=== PATIENT | female | born 1955 | race Caucasian/White ===

== ENCOUNTER → 2016-07-18 | Outpatient (CLI) | payer BC ==
--- NOTE | 2016-07-18 13:18 | MAMMOGRAPHY REPORT ---
BILATERAL DIGITAL SCREENING MAMMOGRAM TOMOSYNTHESIS WITH CAD: 07/18/2016 CLINICAL HISTORY: Routine screening. Patient has no complaints. TECHNIQUE: Breast tomosynthesis in addition to standard 2D mammography was performed. Current study was also evaluated with a Computer Aided Detection (CAD) system. COMPARISON: Comparison is made to exams dated: 07/15/2015 mammogram, 07/14/2014 mammogram, 05/19/2013 ma mmogram, 05/07/2012 mammogram, 01/24/2011 mammogram, and 08/16/2015 mammogram - [facility] enter. BREAST COMPOSITION: The tissue of both breasts is heterogeneously dense, which may obscure small ma sses. FINDINGS: No suspicious masses, calcifications, or areas of architectural distortion are noted in e ither breast. There has been no significant interval change compared to prior exams. IMPRESSION: ACR BI-RADS CATEGORY 1: NEGATIVE There is no mammographic evidence of malignancy. A 1 year screening mammogram is recommended. The p atient will receive written notification of the results. Approximately 10% of breast cancers are not detected with mammography. A negative mammographic repor t should not delay biopsy if a clinically suggestive mass is present. Vanessa Griffin M.D. ah/:07/18/2016 08:53:19 [place] Tanner: Jillian CREWS(R)(M), [facility] letter sent: Normal 1/2 BI-RADS Code: ACR BI-RADS Category 1: Negative
== END | disposition home or self-care (01) ==
LOC: C.MAMM 08:24
DX: Z12.31 Encounter for screening mammogram for malignant neoplasm of breast (principal)

== ENCOUNTER → 2016-09-18 | Outpatient (CLI) | payer BC | END | disposition home or self-care (01) | LOC: C.MAMM 12:41 | DX: M85.851 Other specified disorders of bone density and structure, right thigh (principal); M85.852 Other specified disorders of bone density and structure, left thigh; M85.88 Other specified disorders of bone density and structure, other site; E55.9 Vitamin D deficiency, unspecified ==

== ENCOUNTER → 2016-12-27 | Outpatient (CLI) | payer BC ==
--- NOTE | 2016-12-27 10:37 | DIAGNOSTIC IMAGING REPORT ---
CHEST 2 VIEWS ROUTINE CLINICAL HISTORY: Right-sided rib pain COMPARISON STUDY: No previous studies for comparison. FINDINGS: The cardiac and mediastinal contours are normal. There is no evidence of focal pulmonary consolidation. There is no evidence of failure. No pleural effusions are visualized.[ No pneumothorax is visualized. IMPRESSION: No active disease in the chest. Electronically signed by: Jaxon Whitney M.D. 12/27/2016 10:35 AM Dictated Date/Time: 12/27/2016 10:35 AM
--- NOTE | 2016-12-27 10:38 | DIAGNOSTIC IMAGING REPORT ---
R RIBS UNILATERAL 4 VIEWS CLINICAL HISTORY: RIGHT RIB PAIN COMPARISON STUDY: No previous studies for comparison. FINDINGS: No pneumothorax is visualized. No right-sided rib fractures are evident. No destructive lesions are visualized on conventional radiographic imaging. IMPRESSION: No evidence of pneumothorax. No right-sided rib fractures are visualized. Electronically signed by: Jaxon Whitney M.D. 12/27/2016 10:36 AM Dictated Date/Time: 12/27/2016 10:35 AM
== END | disposition home or self-care (01) ==
LOC: C.RAD1850 10:10
DX: R07.89 Other chest pain (principal)

== ENCOUNTER → 2016-12-27 | Outpatient (CLI) | payer BC ==
--- NOTE | 2016-12-27 14:35 | MAMMOGRAPHY REPORT ---
UNILATERAL RIGHT DIGITAL DIAGNOSTIC MAMMOGRAM TOMOSYNTHESIS WITH CAD AND TARGETED RIGHT ULTRASOUND: 1 CLINICAL HISTORY: The patient reports focal right breast pain for approximately 6 weeks. She had cathy n in a similar location in the past. She denies any palpable lumps or nipple discharge. TECHNIQUE: Breast tomosynthesis in addition to standard 2D mammography was performed. Current study was also evaluated with a Computer Aided Detection (CAD) system. Right CC and MLO 2-D and tomosynthe sis images were obtained. COMPARISON: Comparison is made to exams dated: 07/18/2016 mammogram, 08/16/2015 mammogram, 08/16/2015 ult rasound, 07/15/2015 mammogram, 07/14/2014 mammogram, and 05/19/2013 mammogram - [facility]. BREAST COMPOSITION: The tissue of the right breast is heterogeneously dense, which may obscure small masses. FINDINGS: A square marker schmitz the site of pain in the right inferior anterior breast. There are n o suspicious masses, calcifications, or areas of architectural distortion noted in the right breast. There has been no significant interval change mammographically compared to prior exams. Targeted ultrasound was performed of the area of pain pointed out by the patient, in the right 5:00 p eriareolar breast. Sonographically normal tissue is seen in this region, without evidence of a mass or other suspicious sonographic abnormality. IMPRESSION: ACR BI-RADS CATEGORY 2: BENIGN, TARGETED ULTRASOUND ACR BI-RADS CATEGORY 2: BENIGN No suspicious mammographic or sonographic abnormalities at the site of focal right breast pain pointe d out by the patient. There is no mammographic or targeted sonographic evidence of malignancy. Qamar mmend clinical follow-up, and recommend routine bilateral screening mammograms which are due July 2017 . The patient has been verbally notified of the results. Approximately 10% of breast cancers are not detected with mammography. A negative mammographic report should not delay biopsy if a clinically suggestive mass is present. Vanessa Griffin M.D. ah/:12/27/2016 10:07:13 Credit Risk Modeler: Blanca BAPTISTE)(M), [facility] letter sent: Normal 1/2 BI-RADS Code: ACR BI-RADS Category 2: Benign Ultrasound BI-RADS: ACR BI-RADS Category 2: Benign
== END | disposition home or self-care (01) ==
LOC: C.MAMM 09:38
DX: N64.4 Mastodynia (principal)

== ENCOUNTER → 2017-07-19 | Outpatient (CLI) | payer OTHER ==
--- NOTE | 2017-07-22 07:43 | MAMMOGRAPHY REPORT ---
BILATERAL DIGITAL SCREENING MAMMOGRAM TOMOSYNTHESIS WITH CAD: 07/19/2017 CLINICAL HISTORY: Routine screening. The patient reports occasional right breast tenderness. TECHNIQUE: Breast tomosynthesis in addition to standard 2D mammography was performed. Current study was also evaluated with a Computer Aided Detection (CAD) system. COMPARISON: Comparison is made to exams dated: 12/27/2016 mammogram, 07/18/2016 mammogram, 07/15/2015 m ammogram, 07/14/2014 mammogram, 05/19/2013 mammogram, and 05/07/2012 mammogram - [facility] nter. BREAST COMPOSITION: The tissue of both breasts is heterogeneously dense, which may obscure small mas ses. FINDINGS: No suspicious masses, calcifications, or areas of architectural distortion are noted in ei ther breast. There has been no significant interval change compared to prior exams. IMPRESSION: ACR BI-RADS CATEGORY 1: NEGATIVE There is no mammographic evidence of malignancy. A 1 year screening mammogram is recommended. Also r ecommend continued clinical follow-up for occasional right breast tenderness. The patient will recei ve written notification of the results. Approximately 10% of breast cancers are not detected with mammography. A negative mammographic report should not delay biopsy if a clinically suggestive mass is present. Vanessa Griffin M.D. /:07/19/2017 12:34:16 Ground Wirer: Blake CREWS(Clemencia)(), [facility] letter sent: Normal 1/2 BI-RADS Code: ACR BI-RADS Category 1: Negative
== END | disposition home or self-care (01) ==
LOC: C.MAMM 08:42
DX: Z12.31 Encounter for screening mammogram for malignant neoplasm of breast (principal)